=== PATIENT | female | born 1970 ===

== ENCOUNTER 2016-12-20 12:25 | Emergency (ER) | payer SELFPAY ==
[2016-12-20 12:26] VITALS: BMI 24.5
[2016-12-20 12:30] VITALS: BP 149/82; PULSE 80; RESP 16; TEMP 98.4; O2SAT 100
--- NOTE | 2016-12-20 13:44 | ED PDOC ---
Upper Extremity Pain/Injury Time Seen by Provider: 12/20/16 12:54 Chief Complaint (Nursing): Upper Extremity Problem/Injury Chief Complaint (Provider): Upper Extremity Problem/Injury History Per: Patient History/Exam Limitations: no limitations Onset/Duration Of Symptoms: Days (x4-5 days) Current Symptoms Are (Timing): Still Present Additional Complaint(s): 46 y/o female presents to the emergency department with a complaint of pain to the both arms and hands bilaterally x4-5 hands. Associated with intermittent episodes of numbness to the fingers, left-sided knee pain, and right-sided jaw pain. 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 States she took Tylenol without the relief of pain. Denies dental pain, fall, or any other injury. Past Medical History Reviewed: Historical Data, Nursing Documentation, Vital Signs Vital Signs: Last Vital Signs Temp 98.4 F 12/20/16 12:28 Pulse 80 12/20/16 12:28 Resp 16 12/20/16 12:28 BP 149/82 12/20/16 12:28 Pulse Ox 100 12/20/16 12:28 - Medical History PMH: HTN Denies: Chronic Kidney Disease - Surgical History Surgical History: Cholecystectomy - Family History Family History: States: Unknown Family Hx - Social History Current smoker - smoking cessation education provided: No Alcohol: None Drugs: Denies - Immunization History Hx Tetanus Toxoid Vaccination: Yes - Home Medications Home Medications: Ambulatory Orders Medication Instructions Recorded Dicyclomine [Bentyl] 20 mg PO BID PRN #30 tab 07/16/14 Famotidine [Pepcid] 20 mg PO BID #28 tab 03/29/15 hydrOXYzine HCl [Atarax] 25 mg PO Q8H #21 tab 03/29/15 Ciprofloxacin HCl [Cipro] 500 mg PO BID #20 tab 07/15/15 Metronidazole [Flagyl] 500 mg PO TID #30 tab 07/15/15 Famotidine [Pepcid] 20 mg PO DAILY #20 tab 10/16/15 Methylprednisolone [Medrol Dose 4 mg PO DAILY #21 mg 10/16/15 Pack (21 tabs)] Prednisone 20 mg PO BID 5 Days 01/06/16 Allergy Pill 1 tab PO PRN PRN 02/20/16 Methylprednisolone [Medrol Dose 4 mg PO DAILY #21 mg 12/20/16 Pack (21 tabs)] traMADol [Ultram] 50 mg PO Q6 PRN #8 tab 12/20/16 - Allergies Allergies/Adverse Reactions: Allergies Allergy/AdvReac Type Severity Reaction Status Date / Time ibuprofen Allergy RASH Verified 12/20/16 13:49 shrimp Allergy RASH Verified 12/20/16 13:49 aspirin AdvReac RASH Verified 12/20/16 13:49 EGG AdvReac RASH Verified 12/20/16 13:49 Review of Systems ROS Statement: Except As Marked, All Systems Reviewed And Found Negative Constitutional: Negative for: Other (Fall or any known injury) ENT: Positive for: Mouth Pain (Right-sided jaw pain). Negative for: Other ( Dental pain) Musculoskeletal: Positive for: Hand Pain (b/l), Other (Left knee pain) Neurological: Positive for: Numbness (On/off numbness to the hands and fingers b /l) Physical Exam - Reviewed Nursing Documentation Reviewed: Yes Vital Signs Reviewed: Yes - Physical Exam Appears: Positive for: Non-toxic, No Acute Distress Head Exam: Positive for: ATRAUMATIC, NORMAL INSPECTION, NORMOCEPHALIC Skin: Positive for: Normal Color, Warm, Dry ENT: Positive for: Other (Pain with closing jaw by the TMJ on the right side. ) . Negative for: Normal ENT Inspection (Teeth nontender. No sign of infection or abscess. ) Extremity: Positive for: Normal ROM (Normal ROM of the knee with flexion and extension. ), Tenderness (Tenderness from the wrist up to the mid forearm. Tenderness to the medial aspect of the left knee. ), Swelling (Swelling to the hands bilaterally. Patient describes pain to the 1st and 3rd digit.). Negative for: Deformity (No obvious deformity or ecchymosis to the hands b/l.), Other ( No effusion or deformity of the knee bilaterally. ) Neurologic/Psych: Positive for: Alert, Oriented - ECG O2 Sat by Pulse Oximetry: 100 (RA) Pulse Ox Interpretation: Normal - Progress ED Course And Treament: KNEE XRY: DJD WRIST XRY: WNL TRAMADOL 50 MG X 1 DOSE PLACED IN WRIST SPLINTS Medical Decision Making Medical Decision Making: Time: 12:54 Initial Impression: Pain to multiple sites Initial Plan: --Knee 3 Views BI (RADO --Wrist 3 Views BI (RAD) --Ultram 50 mg PO --Revaluation Scribe Attestation: Documented by Barbra Cerda, acting as a scribe for Tim Burton PA-C. Provider Scribe Attestation: All medical record entries made by the Scribe were at my direction and personally dictated by me. I have reviewed the chart and agree that the record accurately reflects my personal performance of the history, physical exam, medical decision making, and the department course for this patient. I have also personally directed, reviewed, and agree with the discharge instructions and disposition. Disposition - Clinical Impression Clinical Impression: Carpal tunnel syndrome on both sides - Patient ED Disposition Is Patient to be Admitted: No - Disposition Disposition: Routine/Home Disposition Time: 14:20 Condition: FAIR Prescriptions: Methylprednisolone [Medrol Dose Pack (21 tabs)] 4 mg PO DAILY #21 mg traMADol [Ultram] 50 mg PO Q6 PRN #8 tab PRN Reason: Pain, Severe (8-10) Instructions: Carpal Tunnel Syndrome (ED), Arthritis (ED) Forms: [facility] ED School/Work Excuse Print Language: FRISIAN
--- NOTE | 2016-12-20 15:53 | RAD ---
PROCEDURE: Bilateral Wrists Radiographs. HISTORY: WRIST PAIN. No antecedent history of trauma provided. COMPARISON: None. FINDINGS: BONES: Right Carpal Bones: Normal. No fracture or degenerative changes. Left Carpal Bones: Normal. No fracture or degenerative changes. Right Distal Radius and Ulna: No fracture or degenerative changes. Left Distal Radius and Ulna: No fracture or degenerative changes. JOINT SPACES: Right Wrist: Normal. No degenerative changes. Left Wrist: Normal. No degenerative changes. SOFT TISSUES: Right Wrist: Normal. Left Wrist: Normal. OTHER FINDINGS: None. IMPRESSION: Normal radiographs of the wrists.
--- NOTE | 2016-12-20 15:57 | RAD ---
PROCEDURE: Bilateral Knee Radiographs. HISTORY: KNEE PAIN COMPARISON: None. FINDINGS: BONES: Right Knee: Normal. No fracture. Left Knee: Normal. No fracture. JOINTS: Right Knee: Normal. No osteoarthritis. Left knee: Normal. No osteoarthritis. SOFT TISSUES: Right Knee: Normal. Left Knee: Normal. JOINT EFFUSION: Right Knee: None. Left Knee: None. OTHER FINDINGS: None. IMPRESSION: No significant or acute findings to account for/ related to the clinical presentation.
== END 2016-12-20 14:51 | disposition home or self-care (01) ==
LOC: H.ER 12:25
DX: G56.03 Carpal tunnel syndrome, bilateral upper limbs (principal); M25.561 Pain in right knee; M25.562 Pain in left knee

== ENCOUNTER 2018-11-26 06:19 | Emergency (ER) | payer SELFPAY ==
[2018-11-26 06:28] VITALS: BMI 25.4
[2018-11-26] MEDS ORDERED: Oxycodone/Acetaminophen 5/325 mg Tab PO STA (07:36)
--- NOTE | 2018-11-26 07:43 | ED PDOC ---
Upper Extremity Pain/Injury Time Seen by Provider: 11/26/18 07:07 Chief Complaint (Nursing): Finger,Hand,&Wrist Chief Complaint (Provider): Finger,Hand,&Wrist History Per: Patient History/Exam Limitations: no limitations Onset/Duration Of Symptoms: Days (1) Additional Complaint(s): 48 y/o female presents to the ED complaining of right hand thumb injury since yesterday. Patient states she closed her car door on her right thumb which now she explains it is like a pulsating feeling. She admits taking Advil without relief and is left hand dominant . Patient denies any other injuries. Vaccinati ons up to date. PMD: none provided Past Medical History Reviewed: Historical Data, Nursing Documentation, Vital Signs Vital Signs: Last Vital Signs Temp 97.8 F 11/26/18 06:35 Pulse 84 11/26/18 06:35 Resp 16 11/26/18 06:35 BP 146/88 11/26/18 06:35 Pulse Ox 96 11/26/18 06:35 Primary Care Provider: FAMILY PROVIDER,NO - Medical History PMH: HTN Denies: Chronic Kidney Disease - Surgical History Surgical History: Cholecystectomy - Family History Family History: States: Unknown Family Hx - Immunization History Hx Tetanus Toxoid Vaccination: Yes - Home Medications Home Medications: Ambulatory Orders Medication Instructions Recorded Dicyclomine [Bentyl] 20 mg PO BID PRN #30 tab 07/16/14 Famotidine [Pepcid] 20 mg PO BID #28 tab 03/29/15 hydrOXYzine HCl [Atarax] 25 mg PO Q8H #21 tab 03/29/15 Ciprofloxacin HCl [Cipro] 500 mg PO BID #20 tab 07/15/15 Metronidazole [Flagyl] 500 mg PO TID #30 tab 07/15/15 Famotidine [Pepcid] 20 mg PO DAILY #20 tab 10/16/15 Methylprednisolone [Medrol Dose 4 mg PO DAILY #21 mg 10/16/15 Pack (21 tabs)] Prednisone 20 mg PO BID 5 Days tablet 01/06/16 Allergy Pill 1 tab PO PRN PRN 02/20/16 Methylprednisolone [Medrol Dose 4 mg PO DAILY #21 mg 12/20/16 Pack (21 tabs)] traMADol [Ultram] 50 mg PO Q6 PRN #8 tab 12/20/16 Acetaminophen with Codeine 1 tab PO Q6H PRN #10 tab 11/26/18 [Tylenol with Codeine No. 3 300 mg-30 mg] - Allergies Allergies/Adverse Reactions: Allergies Allergy/AdvReac Type Severity Reaction Status Date / Time ibuprofen Allergy RASH Verified 12/20/16 13:49 shrimp Allergy RASH Verified 12/20/16 13:49 aspirin AdvReac RASH Verified 12/20/16 13:49 EGG AdvReac RASH Verified 12/20/16 13:49 Review of Systems Musculoskeletal: Positive for: Hand Pain (Right hand thumb.) Physical Exam - Reviewed Nursing Documentation Reviewed: Yes Vital Signs Reviewed: Yes - Physical Exam Extremity: Positive for: Other (Subungual hematoma with erythema and edema. No abrasion or laceration.). Negative for: Normal ROM (Decrease ROM at IP joint.), Tenderness (No NCP joint tenderness.) - ECG O2 Sat by Pulse Oximetry: 96 Medical Decision Making Medical Decision Making: Time:735 Impression: Right hand thumb injury Plan: -ED urine -Percocet 1 tab PO -Hand x-ray Verbal consent for nail trephination obtained (see procedure note). Finger splint placed. Discussed with patient possibility of abnormal nail in future. Scribe Attestation: Documented by Barbra Quan, acting as a scribe for Sima Mcmanus Provider Scribe Attestation: All medical record entries made by the Scribe were at my direction and personally dictated by me. I have reviewed the chart and agree that the record accurately reflects my personal performance of the history, physical exam, medical decision making, and the department course for this patient. I have also personally directed, reviewed, and agree with the discharge instructions and disposition. Procedures - Nail Trepanation Nail Trepanation Location: R 1st digit Method of Drainage: nail cauterized Sterile Dressing Applied: Yes Finger Splint: Yes Disposition - Clinical Impression Clinical Impression: Crush injury to finger, Subungual hematoma of right thumb - Disposition Referrals: [facility] [Outside] Disposition: Routine/Home Disposition Time: 08:24 Condition: IMPROVED Prescriptions: Acetaminophen with Codeine [Tylenol with Codeine No. 3 300 mg-30 mg] 1 tab PO Q6H PRN #10 tab PRN Reason: Pain, Severe (8-10) Instructions: Crush Injury, Common Finger Injuries Forms: [facility] (Occitan) Print Language: BULGARIAN
--- NOTE | 2018-11-26 08:29 | RAD ---
Date of service: 11/26/2018 PROCEDURE: Right Thumb radiographs. HISTORY: Crushed in door COMPARISON: None. TECHNIQUE: AP radiograph of the right hand, as well as spot oblique and lateral images of thumb were obtained. 3 views obtained. FINDINGS: RIGHT THUMB: Normal right thumb, without fracture or focal lesion. Remainder of the right hand (as seen on the AP view) grossly unremarkable. JOINTS: Normal. SOFT TISSUES: Normal. OTHER FINDINGS: None. IMPRESSION: Normal right thumb radiographs.
[2018-11-26 09:15] VITALS: BP 115/74; PULSE 73; RESP 18; TEMP 98.5; O2SAT 97
== END 2018-11-26 09:12 | disposition home or self-care (01) ==
LOC: H.ER 06:19
DX: S67.01XA Crushing injury of right thumb, initial encounter (principal); W23.1XXA Caught, crushed, jammed, or pinched between stationary objects, initial encounter; I10 Essential (primary) hypertension; S60.111A Contusion of right thumb with damage to nail, initial encounter; Z88.6 Allergy status to analgesic agent